=== PATIENT | female | born 1995 | race Caucasian/White ===

== ENCOUNTER 2018-09-08 14:28 | Emergency (ER) | payer MEDICAID ==
[~2018-09-08] VITALS: Ht 167.6 cm; Wt 116.1 kg
[2018-09-08 14:32] VITALS: Ht 167.6 cm; Wt 116.1 kg
[2018-09-08 19:12] VITALS: BP 169/59
== END 2018-09-08 19:12 | disposition home or self-care (01) ==
LOC: ED 14:28
DX: M25.561 Pain in right knee (principal); J45.909 Unspecified asthma, uncomplicated
CPT/HCPCS: J1885; J2270; Q0092

== ENCOUNTER 2018-11-27 09:08 | Emergency (ER) | payer OTHER ==
[~2018-11-27] VITALS: Ht 167.6 cm; Wt 84.9 kg
[2018-11-27 09:13] VITALS: Ht 167.6 cm; Wt 84.9 kg
[2018-11-27 11:04] VITALS: BP 140/79
== END 2018-11-27 11:07 | disposition home or self-care (01) ==
LOC: ED 09:08
DX: J45.901 Unspecified asthma with (acute) exacerbation (principal)
CPT/HCPCS: J7512; J7613; J7644

== ENCOUNTER 2019-01-28 22:34 | Emergency (ER) | payer OTHER ==
[~2019-01-28] VITALS: Ht 167.6 cm; Wt 123.2 kg
[2019-01-28 22:51] VITALS: Ht 167.6 cm; Wt 123.2 kg
[2019-01-29 00:13] VITALS: BP 155/89
== END 2019-01-29 00:13 | disposition home or self-care (01) ==
LOC: ED 22:34
DX: J45.901 Unspecified asthma with (acute) exacerbation (principal)
CPT/HCPCS: J7512; J7613; J7644